=== PATIENT | female | born 1980 | race Hispanic/Latino ===

== ENCOUNTER 2018-02-24 17:04 | Emergency (ER) | payer BC, MEDICAID ==
[2018-02-24 17:34] VITALS: BP 109/72; PULSE 70; RESP 18; TEMP 98.3; O2SAT 100
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
== END 2018-02-24 19:10 | disposition home or self-care (01) ==
LOC: H.ER 17:04
DX: Z04.1 Encounter for examination and observation following transport accident (principal)

== ENCOUNTER 2018-07-08 19:19 | Emergency (ER) | payer BC ==
[2018-07-08 19:28] VITALS: BP 132/82; PULSE 87; RESP 16; TEMP 98.2; O2SAT 99
[2018-07-08] MEDS ORDERED: Oxycodone/Acetaminophen 5/325 mg Tab PO STA (19:42)
[2018-07-08] MEDS ORDERED: Lidocaine PF 2% (5 ml) Inj (For Cardiac Arrhy) ONE (21:24)
[2018-07-08] MEDS ORDERED: Lidocaine 1% Inj (20ml) IJ ONE (21:46)
--- NOTE | 2018-07-08 22:28 | ED PDOC ---
Lower Extremity Pain/Injury Time Seen by Provider: 07/08/18 19:29 Chief Complaint (Nursing): Lower Extremity Problem/Injury Chief Complaint (Provider): Right 5th toe pain, deformity Past Medical History Vital Signs: Last Vital Signs Temp 98.2 F 07/08/18 19:25 Pulse 87 07/08/18 19:25 Resp 16 07/08/18 19:25 BP 132/82 07/08/18 19:25 Pulse Ox 99 07/08/18 19:25 - Surgical History Surgical History: Back Surgery (Spinal surgery L4/L5 ) - Family History Family History: States: Unknown Family Hx - Home Medications Home Medications: Ambulatory Orders Medication Instructions Recorded Cyclobenzaprine [Flexeril] 10 mg PO TID #27 tab 02/24/18 Naproxen [Naprosyn] 500 mg PO BID PRN #20 tablet 07/08/18 oxyCODONE/Acetaminophen [Percocet 1 ea PO Q6H PRN #15 tab 07/08/18 5/325 mg Tab] - Allergies Allergies/Adverse Reactions: Allergies Allergy/AdvReac Type Severity Reaction Status Date / Time No Known Allergies Allergy Verified 02/24/18 17:31 - ECG O2 Sat by Pulse Oximetry: 99 Disposition - Clinical Impression Clinical Impression: Toe fracture, right - Patient ED Disposition Is Patient to be Admitted: No Counseled Patient/Family Regarding: Diagnosis, Need For Followup, Rx Given - Disposition Referrals: Podiatry Clinic [Outside] Saran Lloyd MD [Staff Provider] - Disposition: Routine/Home Disposition Time: 22:28 Condition: GOOD Prescriptions: Naproxen [Naprosyn] 500 mg PO BID PRN #20 tablet PRN Reason: Pain oxyCODONE/Acetaminophen [Percocet 5/325 mg Tab] 1 ea PO Q6H PRN #15 tab PRN Reason: Pain, Severe (8-10) Instructions: Toe Fracture (DC) Forms: [facility] (Y[place]), [facility] ED School/Work Excuse
--- NOTE | 2018-07-09 06:14 | CP.PCM.CON ---
History of Present Illness - History of Present Illness History of Present Illness: 38 y/o female was seen and evaluated in the ED due to complaints of pain to the right 5th digit. Patient states 1 hour prior to ED arrival, she stubbed her 5th toe against the radiator at home. Patient states the pain is 10/10 at this time. Patient denies taking any medication for the pain. Patient denies any fever, nausea, vomiting, chest pain, SOB tonight. Patient denies any other pedal complaints. PMHx: Migraines, Lumbar Herniated Discs PSHx: Spinal Surgery X 2, Left Hip Surgery Medications: denied by patient Allergies: to spices (reaction: burning to throat) Review of Systems - Review of Systems All systems: reviewed and no additional remarkable complaints except Review of Systems: As per HPI Past Patient History - Past Social History Smoking Status: Unknown If Ever Smoked - PSYCHIATRIC Hx Substance Use: No - SURGICAL HISTORY Hx Surgeries: Yes Other/Comment: Spinal surgery L4/L5 - ANESTHESIA Hx Anesthesia: No Meds Home Medications: Home Medication List Medication Instructions Recorded Confirmed Type Naproxen [Naprosyn] 500 mg PO BID PRN #20 tablet 07/08/18 Rx oxyCODONE/Acetaminophen [Percocet 1 ea PO Q6H PRN #15 tab 07/08/18 Rx 5/325 mg Tab] Allergies/Adverse Reactions: Allergies Allergy/AdvReac Type Severity Reaction Status Date / Time No Known Allergies Allergy Verified 02/24/18 17:31 Physical Exam - Constitutional Appears: Well, Non-toxic, No Acute Distress - Head Exam Head Exam: ATRAUMATIC, NORMOCEPHALIC - Extremities Exam Additional comments: Right Lower Extremity Exam VASC: DP and PT 2/4, CFT less than 3 seconds X 5, minimal edema noted to the 5th digit NEURO: Epicritic and protective sensation intact DERM: minimal ecchymosis noted to the lateral aspect of the 5th digit, no open lesions, no clinical signs of infection, no erythema ORTHO: deformity noted of the 5th digit with lateral deviation, painful on palpation and with range of motion - Neurological Exam Neurological exam: Alert, Oriented x3 - Psychiatric Exam Psychiatric exam: Normal Affect, Normal Mood Results - Vital Signs Recent Vital Signs: Last Vital Signs Temp 98.2 F 07/08/18 19:25 Pulse 87 07/08/18 19:25 Resp 16 07/08/18 19:25 BP 132/82 07/08/18 19:25 Pulse Ox 99 07/08/18 23:53 Assessment & Plan - Assessment and Plan (Free Text) Assessment: 38 y/o female seen and evaluated at bedside for deformity to the right 5th digit with fracture of the proximal phalanx Plan: Patient seen and evaluated Plan discussed with attending, Dr. Lloyd Right Foot X-ray: oblique through and through fracture noted in the shaft of the proximal phalanx of the 5th digit with displacement and valgus angulation Patient explained she would require a close reduction in the Emergency Department at this time with local anesthesia. Patient agreed to procedure Patient was administered a local 2% Lidocaine block in a V-fashion at the base of the 5th digit Close reduction was performed gradually, and position of the 5th digit was maintained with a Coban- 5th digit was splinted against the 4th digit Patient tolerated the procedure well Post reduction x-rays were performed- adequate position was noted of the proximal fracture post reduction with no displacement or subluxation Patient was thoroughly explained she cannot weight bear to the RLE to avoid re- dislocation Patient to keep the dressing clean, dry and intact Patient provided [facility] Surgical shoe and crutches, and demonstrated how to ambulate with crutches for patient Patient educated to check Capillary fill time and to return to ED if any signs of infection noted or if signs of decreased perfusion noted Patient will follow up in Dr. Lloyd's office Thank you for the Podiatry consult - Date & Time Date: 07/09/18 Time: 11:22
--- NOTE | 2018-07-09 09:14 | RAD ---
Date of service: 07/08/2018 PROCEDURE: Right Foot Radiographs. HISTORY: 5th digit pain COMPARISON: None. FINDINGS: BONES: There is oblique fracture of the proximal phalanx right small digit with valgus angulation of the major distal fracture fragment. Fracture is slightly impacted. No destructive bony lesion appreciated throughout. JOINTS: No subluxation or dislocation identified. SOFT TISSUES: Normal. OTHER FINDINGS: None. IMPRESSION: Oblique fracture impacted with valgus angulation at the right foot small digit proximal phalanx. No dislocation.
--- NOTE | 2018-07-09 09:27 | RAD ---
Date of service: 07/08/2018 PROCEDURE: Right Foot Radiographs. HISTORY: post reduction 5th digit COMPARISON: None. FINDINGS: BONES: Bandaging obscures fine bony and soft-tissue detail. Postreduction images demonstrate reduction of proximal phalangeal oblique fracture at the right 5th digit. No new fracture appreciable otherwise. JOINTS: Normal. SOFT TISSUES: Normal. OTHER FINDINGS: None. IMPRESSION: Adequate reduction proximal phalanx fracture right 5th digit. No interval fracture otherwise evident. Bandaging obscures fine bone and soft-tissue detail.
== END 2018-07-08 22:44 | disposition home or self-care (01) ==
LOC: H.ER 19:19
DX: S92.351A Displaced fracture of fifth metatarsal bone, right foot, initial encounter for closed fracture (principal); W22.8XXA Striking against or struck by other objects, initial encounter; Y92.89 Other specified places as the place of occurrence of the external cause